=== PATIENT | male | born 1975 | race Hispanic/Latino ===

== ENCOUNTER 2019-06-03 19:27 | Emergency (ER) | payer OTHER, SELFPAY ==
[2019-06-03] MEDS ORDERED: Adacel (T-DAP) 0.5 ML SYRINGE ONE (20:14)
[2019-06-03] MEDS ORDERED: Lidocaine 1% w/Epinephrine 1:100K 20 ML VIAL ONE ×2 (20:18→23:19)
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
[2019-06-03] MEDS ORDERED: CEFAZOLIN 1 GM in Sodium Chloride 0.9% 100 ML IVPB SCH (20:30)
[2019-06-03] MEDS ORDERED: CEFAZOLIN 2 GM in Premix Bag 1 BAG IVPB SCH (20:30)
[2019-06-03] MEDS ORDERED: Bupivacaine 0.5% 10 ML VIAL ONE (20:38)
[2019-06-03] MEDS ORDERED: Ketorolac Tromethamine 30 MG/ML VIAL ONE (21:35)
[2019-06-03] MEDS ORDERED: Morphine 4 MG/ML VIAL ONE (21:35)
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
== END 2019-06-04 01:20 | disposition home or self-care (01) ==
LOC: ERS 19:27
DX: S01.01XA Laceration without foreign body of scalp, initial encounter (principal); S66.329A Laceration of extensor muscle, fascia and tendon of unspecified finger at wrist and hand level, initial encounter; F17.200 Nicotine dependence, unspecified, uncomplicated; W22.8XXA Striking against or struck by other objects, initial encounter
CPT/HCPCS: 12001; 90715; 96365; 96375; J0690; J1885; J2001; J2270; J3490

== ENCOUNTER 2019-08-04 12:37 | Outpatient (CLI) | payer OTHER ==
--- NOTE | 2019-08-04 15:37 | MRI ---
THORACIC SPINE MRI NONCONTRAST: 08/04/19 CLINICAL HISTORY: Thoracic outlet syndrome, thoracic pain, prior injury. No imaging comparisons available. FINDINGS: The thoracic spine vertebral bodies maintain appropriate marrow signal and alignment. There are chron ic mild end plate cavitations most likely atraumatic in etiology such as Schmorl's nodes or areas of developmental end plate irregularity. Nevertheless, there is no marrow edema or evidence of recent in jury related with these findings. There is appropriate mild kyphotic curvature of the thoracic spine. No acute disc space inflammation or paraspinal soft tissue edema. The thoracic spinal cord is of esthela ropriate caliber, contour and signal intensity without significant extrinsic mass effect upon the the leo sac or thoracic spine neural foramina. IMPRESSION: No acute abnormalities of the thoracic spine. POS: OFF
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
== END 2019-08-04 12:38 | disposition home or self-care (01) ==
LOC: SCSMRI 12:37
PROVIDERS: ATTEND Orthopaedic Surgery Hand Surgery
DX: S63.41 Traumatic rupture of collateral ligament of finger at metacarpophalangeal and interphalangeal joint (principal); G54.0 Brachial plexus disorders; S69.81XA Other specified injuries of right wrist, hand and finger(s), initial encounter; S66.822A Laceration of other specified muscles, fascia and tendons at wrist and hand level, left hand, initial encounter
CPT/HCPCS: 72146

== ENCOUNTER 2024-04-11 11:49 | Outpatient (CLI) | payer OTHER | END 2024-04-11 11:50 | disposition home or self-care (01) | LOC: BICRAD 11:49 | PROVIDERS: ATTEND Nurse Practitioner Family | DX: M67.814 Other specified disorders of tendon, left shoulder (principal); M65.812 Other synovitis and tenosynovitis, left shoulder; M25.78 Osteophyte, vertebrae; M48.02 Spinal stenosis, cervical region; Z98.890 Other specified postprocedural states | CPT/HCPCS: 72050 ==